=== PATIENT | female | born 1975 | race Caucasian/White ===

== ENCOUNTER 2018-05-03 11:32 | Emergency (ER) ==
[2018-05-03 11:52] VITALS: TEMP 97.6; BMI 26.1
--- NOTE | 2018-05-03 13:13 | ED.PDOC ---
General ED Provider: Dr. ARNOL FRAZIER Chief Complaint: Rash Stated Complaint: Facial Rash. Has developed a rash that is affecting her face. Stated that rash painful and itching. Patient indicated that her facial region with rash seemed swollend this moring but this has since resolved. Denies involvement with her lips or inside mouth. Denies dyspnea. Unaware of any exposure to new soaps, detergents of plant items. Incidently, patient states she has take Augumentin three times, Monday evening, , and mon. Medication was not prescribed to her. Started this due to her sore throat. Denies rash to other areas of her body. Time Seen by Physician: 12:30 Mode of Arrival: Walk-In Information Source: Patient Exam Limitations: No limitations Nursing and Triage Documentation Reviewed and Agree: Yes Reviewed sepsis parameters & appropriate labs ordered?: Yes Does patient meet sepsis criteria?: No System Inflammatory Response Syndrome: Not Applicable Sepsis Protocol: For patient's 13 years and over: Temp is 96.8 and below OR 101 and greater Pulse >90 BPM Resp >20/minute Acutely Altered Mental Status Are patient's symptoms suggestive of a new infection, such as: -Pneumonia -Skin, Soft Tissue -Endocarditis -UTI -Bone, Joint Infection -Implantable Device -Acute Abdominal Infection -Wound Infection -Meningitis -Blood Stream Catheter Infection -Unknown Skin Complaint Exam - Skin Rash/Itching Complaint/Exam Onset/Duration: This Morning Symptoms Are: Still present Initial Severity: Moderate Current Severity: Mild Location: Facial region Review of Systems - Review Of Systems Constitutional: Reports: No symptoms Eyes: Reports: No symptoms Ears, Nose, Mouth, Throat: Reports: No symptoms Respiratory: Reports: No symptoms Cardiac: Reports: No symptoms GI: Reports: No symptoms : Reports: No symptoms Musculoskeletal: Reports: No symptoms Skin: Reports: Rash, Other (itching) Neurological: Reports: No symptoms Endocrine: Reports: No symptoms Hematologic/Lymphatic: Reports: No symptoms All Other Systems: Reviewed and Negative Past Medical History - Past Medical History Endocrine: Reports: None Cardiovascular: Reports: None Respiratory: Reports: None Hematological: Reports: Anemia Gastrointestinal: Reports: None Genitourinary: Reports: None Neuro/Psych: Reports: None Musculoskeletal: Reports: None Cancer: Reports: None Last Menstrual Period: 2005 - Surgical History General Surgical History: Reports: Unknown - Family History Family History: Reports: Unknown - Social History Smoking Status: Never smoker Hx Substance Use: No Alcohol Screening: Occasionally - Immunizations Tetanus Shot up to Date: Yes Physical Exam - Physical Exam Appearance: Well-appearing, No pain distress, Well-nourished Eyes: RHYS, EOMI, Conjunctiva clear ENT: Ears normal, Nose normal, Erythema (pharynx mildly injected) Respiratory: Airway patent, Breath sounds clear, Breath sounds equal, Respirations nonlabored Cardiovascular: RRR, Pulses normal, No rub, No murmur GI/: Soft, Nontender, No masses, Bowel sounds normal, No Organomegaly Musculoskeletal: Normal strength, ROM intact, No edema, No calf tenderness Skin: Warm, Dry, Normal color Neurological: Sensation intact, Motor intact, Reflexes intact, Cranial nerves intact, Alert, Oriented Psychiatric: Affect appropriate, Mood appropriate Critical Care Note - Critical Care Note Total Time (mins): 0 Comments: 0 Course - Course Orders, Labs, Meds: Orders Category Date Time Status Dexamethasone 4 mg/ml Inj [Decadron 4 mg/ml Sdv] MEDS 05/03/18 13:24 Discontinued 4 mg IM ONCE STA Diphenhydramine HCl [Benadryl] MEDS 05/03/18 13:23 Discontinued 25 mg PO ONCE STA Medications Discontinued Medications Generic Name Dose Route Start Last Admin Trade Name Juancarlosq PRN Reason Stop Dose Admin Dexamethasone Sodium Phosphate 4 mg 05/03/18 13:24 05/03/18 13:39 Decadron 4 Mg/Ml Sdv IM 05/03/18 13:25 4 mg ONCE STA Administration Diphenhydramine HCl 25 mg 05/03/18 13:23 05/03/18 13:39 Benadryl PO 05/03/18 13:24 25 mg ONCE STA Administration Vital Signs: Temp Pulse Resp BP Pulse Ox 05/03/18 13:50 142/94 H 05/03/18 11:32 97.6 F 99 H 18 139/95 H 99 Departure - Departure Time of Disposition: 13:20 Disposition: HOME SELF-CARE Discharge Problem: Rash of face, Atopic dermatitis Discharge Problem: (Ruled Out): Atopic dermatitis of eyelid Instructions: Acute Rash (ED), Dermatitis (ED) Condition: Fair Pt referred to PMD for follow-up: Yes IPMP verified?: No Additional Instructions: Take Benadryl for itching as directed Zyrtec 1 daily for rash and itching Rinse face Apply facial moistuizing cream Take Prednisone as directed if worsens return to ER Prescriptions: Prednisone 10 mg PO DIRECTED 7 Days #18 tab Allergies/Adverse Reactions: Allergies ampicillin Allergy (Severe, Verified 05/03/18 11:52) makes me anemic aspirin Allergy (Severe, Verified 05/03/18 11:52) kills red blood cells Sulfa (Sulfonamide Antibiotics) Allergy (Severe, Verified 05/03/18 11:52) during childhood, unsure of problems Home Medications: Ambulatory Orders Prednisone 10 mg PO DIRECTED 7 Days #18 tab 05/03/18 Disposition Discussed With: Patient (See PCP in 4-7 days)
[2018-05-03] MEDS ORDERED: BENADRYL PO STA (13:23)
[2018-05-03] MEDS ORDERED: DECADRON 4 MG/ML SDV IM STA (13:24)
[2018-05-03 13:54] VITALS: BP 142/94
== END 2018-05-03 13:50 | disposition home or self-care (01) ==
LOC: ED 11:32
DX: R21 Rash and other nonspecific skin eruption (principal)
CPT/HCPCS: 96372; 99282

== ENCOUNTER 2018-11-19 11:54 | Outpatient (CLI) | END 2018-11-19 11:55 | disposition home or self-care (01) | LOC: LAB 11:54 → RHC-LAB 11:55 | PROVIDERS: ATTEND Nurse Practitioner Family | DX: J02.9 Acute pharyngitis, unspecified (principal) | CPT/HCPCS: 87651 ==

== ENCOUNTER 2019-04-01 19:56 | Emergency (ER) ==
[2019-04-01] MEDS ORDERED: LACTATED RINGERS 1,000 ML IV STA (20:05)
[2019-04-01 20:06] VITALS: BP 153/102; TEMP 99.2; BMI 24.8
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
== END 2019-04-01 23:45 | disposition home or self-care (01) ==
LOC: ED 19:56
DX: S09.90XA Unspecified injury of head, initial encounter (principal); M54.2 Cervicalgia; R07.89 Other chest pain; S39.91XA Unspecified injury of abdomen, initial encounter; T07.XXXA Unspecified multiple injuries, initial encounter; D64.9 Anemia, unspecified; V86.69XA Passenger of other special all-terrain or other off-road motor vehicle injured in nontraffic accident, initial encounter
CPT/HCPCS: 36415; 80053; 81001; 82150; 83690; 84703; 85008; 85025; 93005; 93010; 96360; 96361; 99284